=== PATIENT | female | born 1995 | race Caucasian/White ===

== ENCOUNTER 2018-01-19 22:50 | Outpatient (CLI) | END 2018-01-20 00:30 | disposition home or self-care (01) ==

== ENCOUNTER 2018-02-09 11:55 | Inpatient (IN) | END 2018-02-11 14:14 | disposition home or self-care (01) | DRG 807 ==

== ENCOUNTER 2018-07-24 14:04 | Emergency (ER) | payer OTHER ==
[~2018-07-24] VITALS: Ht 165.1 cm; Wt 65.5 kg
[~2018-07-24 14:04] MED LIST: FERR134T PO; PREN-19 PO
[2018-07-24 14:08] VITALS: Ht 165.1 cm; Wt 65.5 kg
[2018-07-24] MEDS ORDERED: CEPH-443 PO (17:22)
[2018-07-24 17:31] VITALS: BP 112/62; PULSE 80; RESP 18
--- NOTE | 2018-07-24 18:10 | ERD ---
ER Documentation Chief Complaint Chief Complaint beauty wedge sponge stuck in vagina HPI 23-year-old female patient with no significant past medical history presents to ED complaining of sticking a beauty beeswax bleacher wedge sponge into her vagina about 1 week ago. States that now there is a foul odor. Reports that she did after having sexual intercourse to absorb the bleeding. Denies any chest pain, shortness of breath, nausea, vomiting, diarrhea, neck stiffness. Denies any vaginal bleeding, fever, vaginal discharge. ROS All systems reviewed and are negative except as per history of present illness. Medications Home Meds Active Scripts Cephalexin* (Keflex*) 500 Mg Capsule, 500 MG PO QID for 7 Days, CAP Prov:SADIA DUBOSE PA-C 07/24/18 Reported Medications Ferrous Sulfate (Iron) 134 Mg Tablet, 134 MG PO DAILY, TAB 01/19/18 Vit #76/Iron,Carb/FA (Prenatabs Rx Tablet) 1 Each Tablet, 1 EACH PO DAILY, TAB 01/19/18 Allergies Allergies: Coded Allergies: No Known Allergy (Unverified , 01/19/18) PMhx/Soc History of Surgery: Yes (R hand at 3yrs/age, Oral surgery) Anesthesia Reaction: No Hx Neurological Disorder: No Hx Respiratory Disorders: No Hx Cardiac Disorders: No Hx Psychiatric Problems: No Hx Miscellaneous Medical Probl: No Hx Alcohol Use: No Hx Substance Use: No Hx Tobacco Use: No Smoking Status: Never smoker FmHx Family History: No diabetes, No coronary disease Physical Exam Vitals Vital Signs Date Temp Pulse Resp B/P (MAP) Pulse Ox O2 O2 Flow FiO2 Time Delivery Rate 07/24/18 98.5 80 18 112/62 97 Room Air 17:31 (79) 07/24/18 98.1 78 18 140/76 98 14:08 (97) Physical Exam Const: Oju-hit-umosdsrxo, well-nourished. In no acute distress. Head: Atraumatic, normocephalic Eyes: Normal Conjunctiva without injection. No purulent discharge. ENT: Normal external ear, nose. Moist oropharynx without tonsillar exudates. Non-erythematous pharynx. Uvula midline. No drooling. No trismus. Neck: No cervical midline tenderness. Full range of motion. No meningismus. No cervical lymphadenopathy. No JVD. Resp: Clear to auscultation bilaterally. No wheezing, rhonchi, rales, or crackles. No accessory muscle use. No retractions. Cardio: Regular rate and rhythm. No murmurs, rubs or gallops. Abd: Soft, nontender, non distended. Normal bowel sounds. No palpable masses. No rebound tenderness. No guarding. Negative McBurney's point. Negative psoas sign. Negative obturator sign. : See exam in MDM. Skin: No petechiae or rashes Back: No midline tenderness. No CVA tenderness. Ext: No cyanosis, or edema. Neur: Awake and alert. Normal gait. Normal coordination. Psych: Normal Mood and Affect Procedures/MDM 23-year-old female patient with no significant past medical history presents ED complaining of sticking beauty beeswax bleacher wedge into her vagina about a week ago. Patient is afebrile and nontoxic-appearing. Pelvic Exam: City Assessor present Abdomen: Nontender External Genitalia: Normal Skin Speculum: Normal vaginal mucosa, normal cervical discharge, beauty beeswax bleacher wedge sponge present Bimanual: No adnexal masses or tenderness, No CMT The beauty beeswax bleacher sponge was removed without any difficulty from the vaginal vault. There is no bleeding ridging noted. Since patient has a foul odor, patient will be discharged with a prescription for Keflex, to treat for infection. Low suspicion for toxic shock syndrome, ectopic , ovarian torsion, gastritis, GERD, peptic ulcer disease, cholecystitis, choledocholithiasis, cholangitis, pancreatitis, appendicitis, bowel obstruction, ileus, volvulus, nephrolithiasis, pyelonephritis, hepatitis, perforated viscus, diverticulitis, strangulated/incarcerated hernia, DKA, acute abdomen, mesenteric ischemia or other emergent conditions. Diagnosis: Retained foreign body (removed) Discharge medications: Keflex Follow up with primary care physician in 1-2 days. Instructed patient to return to the ED sooner for any worsening symptoms. Patient's questions were answered. Patient is hemodynamically stable. Patient understood and agreed with discharge plan. Patient discharged stable. Disclaimer: Inadvertent spelling and grammatical errors are likely due to EHR/dictation software use and do not reflect on the overall quality of patient care. Also, please note that the electronic time recorded on this note does not necessarily reflect the actual time of the patient encounter. Departure Diagnosis: Primary Impression: Retained foreign body Condition: Stable Patient Instructions: Vaginal Foreign Body, Removed (Adult) Referrals: [facility] ([facility] YOU HAVE RECEIVED A MEDICAL SCREENING EXAM AND THE RESULTS INDICATE THAT YOU DO NOT HAVE A CONDITION THAT REQUIRES URGENT TREATMENT IN THE EMERGENCY DEPARTMENT. FURTHER EVALUATION AND TREATMENT OF YOUR CONDITION CAN WAIT UNTIL YOU ARE SEEN IN YOUR DOCTORS OFFICE WITHIN THE NEXT 1-2 DAYS. IT IS YOUR RESPONSIBILITY TO MAKE AN APPOINTMENT FOR FOLOW-UP CARE. IF YOU HAVE A PRIMARY DOCTOR --you should call your primary doctor and schedule an appointment IF YOU DO NOT HAVE A PRIMARY DOCTOR YOU CAN CALL OUR PHYSICIAN REFERRAL HOTLINE AT IF YOU CAN NOT AFFORD TO SEE A PHYSICIAN YOU CAN CHOSE FROM THE FOLLOWING [facility] [address] [facility]. [facility] [address] [facility] [facility] [address] [facility] [address] [facility] [address] [facility]. [facility] [address] [facility]. [facility] YOU HAVE RECEIVED A MEDICAL SCREENING EXAM AND THE RESULTS INDICATE THAT YOU DO NOT HAVE A CONDITION THAT REQUIRES URGENT TREATMENT IN THE EMERGENCY DEPARTMENT. FURTHER EVALUATION AND TREATMENT OF YOUR CONDITION CAN WAIT UNTIL YOU ARE SEEN IN YOUR DOCTORS OFFICE WITHIN THE NEXT 1-2 DAYS. IT IS YOUR RESPONSIBILITY TO MAKE AN APPOINTMENT FOR FOLOW-UP CARE. IF YOU HAVE A PRIMARY DOCTOR --you should call your primary doctor and schedule and appointment IF YOU DO NOT HAVE A PRIMARY DOCTOR YOU CAN CALL OUR PHYSICIAN REFERRAL HOTLINE AT . IF YOU CAN NOT AFFORD TO SEE A PHYSICIAN YOU CAN CHOSE FROM THE FOLLOWING [facility] INSTITUTIONS[facility] [address] [place] [address] [facility] [address] [place] [address] [facility] [address] [place] [address] [facility] URGENT CARE/SPECIALTIES Additional Instructions: Call your primary care doctor TOMORROW for an appointment during the next 2-3 days.See the doctor sooner or return here if your condition worsens before your appointment time. SADIA DUBOSE PA-C July 24, 2018 18:10
== END 2018-07-24 17:32 | disposition home or self-care (01) ==
LOC: FTE 14:04
DX: T19.2XXA Foreign body in vulva and vagina, initial encounter (principal); X58.XXXA Exposure to other specified factors, initial encounter; Y92.9 Unspecified place or not applicable
CPT/HCPCS: 99284